=== PATIENT | female | born 1985 | race Caucasian/White ===

== ENCOUNTER → 2019-11-05 | Outpatient (POV) | payer BC ==
--- NOTE | 2019-11-07 10:34 | IRCOV ---
[facility] IR Consult Office Visit IR Consult Office Visit DATE: Nov 05, 2019 Patient agreed to telephone consult. Duration of call was 20 minutes. REASON FOR CONSULTATION/CHIEF COMPLAINT: Left leg swelling. HISTORY OF PRESENT ILLNESS: 34-year-old female gives decades long history of chronic left leg swelling which started in her teen years. She tried compression stockings and restricting diet and restricting salt intake with no relief. Over the past several months, she describes the left leg swells increasingly during the day, feels heavy and hurts. Swelling does go down overnight and is least in the morning and worsens during the day. This affects her daily activities. Her right leg swells a little but she states her symptoms are not anything like the left leg.. She denies pelvic bulk-like symptoms, extreme pain with menstruations and/or deep dyspareunia. She was seen by a vascular surgeon in [place] in May of this year and reports venous stenting was performed by vascular surgery, in [place]. She got symptom relief for 1 month post procedure, but now the symptoms are worse then before the procedure. She presents for a second opinion. No prior history of DVTs. No venous ulcers. No fevers or chills. She is on aspirin 325 mg. She took aspirin and Plavix for 3 months after the stenting. Nonsmoker. ALLERGIES: Please see below. HOME MEDICATIONS: Please see below. PAST MEDICAL HISTORY: Sarah's thyroiditis Proximal superventricular tachycardia PAST SURGICAL HISTORY: Bilateral groin access and reported left iliac vein stenting in June 2019 FAMILY HISTORY: No family history of varicose veins SOCIAL HISTORY: Nonsmoker. Denies alcohol or drugs. REVIEW OF SYSTEMS: Otherwise negative. PHYSICAL EXAMINATION: No video on patient's side LABORATORY DATA: None available Imaging: None available. ASSESSMENT/PLAN: 34-year-old female with decades long history of left lower extremity swelling and pain, reports recent iliac vein stenting at outside [facility]. Symptoms are now much worse post stenting and patient would like a second opinion. I feel this is best done with a venogram which will allow assessment for stent patency, look at stent placement/location, flow dynamics and allow for stent revision and/or extension if needed. We discussed the risks and benefits of the procedure and patient would like to proceed. We'll schedule the patient for this procedure. I spent 20 minutes in consultation with the patient. Thank you for this referral. Cc SAL Olivarez MD Nov 07, 2019 10:34
== END ==
LOC: M TMIRPOV 13:49
PROVIDERS: ATTEND Radiology Diagnostic Radiology
DX: M79.604 Pain in right leg (principal); M79.605 Pain in left leg; R60.0 Localized edema; E06.3 Autoimmune thyroiditis; I47.1 Supraventricular tachycardia; Z95.828 Presence of other vascular implants and grafts

== ENCOUNTER → 2019-11-22 | Outpatient (CLI) | payer BC ==
[~2019-11-22] MED LIST: ACETAMINOPHEN 325 MG TAB As Ordered ONE; ALPR0.25 PO; ASPI325T56 PO; ISOVUE-300 61% 50ML VIAL As Ordered ONE; LIDOCAINE 1% MDV 20ML VIAL As Ordered ONE; MIDAZOLAM INJ 2MG/2ML VIAL (J2250 PER 1MG) As Ordered ONE; NS 1,000 ML IV SCH; PROMETHAZINE INJ 25 MG/ML VIAL (J2550) As Ordered ONE; SYNT75TA PO; diphenhydrAMINE 50MG/ML VIAL (J1200) As Ordered ONE; fentaNYL 100 MCG/2 ML INJECTION (J3010) As Ordered ONE
[2019-11-22 09:09] LABS: HEMATOCRIT 43.6 % (36.0-47.0); HEMOGLOBIN 14.3 g/dl (12.0-15.5); MEAN CORPUSCULAR HEMOGLOBIN 30.1 pg (27.0-33.0); MEAN CORPUSCULAR HGB CONC 32.8 g/dl (32.0-36.5); MEAN CORPUSCULAR VOLUME 91.8 fl (80.0-96.0); PLATELET COUNT, AUTOMATED 336 10^3/uL (150-450); RED BLOOD COUNT 4.75 10^6/uL (4.00-5.40); WHITE BLOOD COUNT 9.9 10^3/uL (4.0-10.0)
[2019-11-22 09:52] LABS: BLOOD UREA NITROGEN 16 MG/DL (7-18); CALCIUM LEVEL 8.9 MG/DL (8.5-10.1); CARBON DIOXIDE LEVEL 26 MEQ/L (21-32); CHLORIDE LEVEL 106 MEQ/L (98-107); CREATININE FOR GFR 0.77 MG/DL (0.55-1.30); GLOMERULAR FILTRATION RATE > 60.0 (>60); GLUCOSE, FASTING 87 MG/DL (70-100); POTASSIUM SERUM 3.8 MEQ/L (3.5-5.1); SODIUM LEVEL 137 MEQ/L (136-145)
--- NOTE | 2019-11-22 13:24 | IRHP ---
[facility] IR Pre-Procedure H & P General Date of Service: Nov 22, 2019 Procedure: Same Day Surgery Interval History and Physical I have seen the patient and reviewed last H & P performed within 30 days. There is no significant interval change. History of Present Illness Chief Complaint The patient is a 34-year-old female admitted with a reason for visit of September. PRE-PROCEDURE DIAGNOSIS: september HEART: normal rate. LUNGS: normal breathing at rest. ASA Classification ASA Classification: I-Healthy Mallampati Score: II NPO: Yes Problems with prior sedation: No Obstructive Sleep Apnea: No Plan moderate sedation Home Medications Scheduled Aspirin (Aspirin), 1 TAB PO DAILY, (Reported) Levothyroxine Sodium (Synthroid), 1 TAB PO DAILY, (Reported) Scheduled PRN Alprazolam (Alprazolam), 0.25 MG PO BIDP PRN for anxiety, (Reported) VS, I&O, 24H, Fishbone Vital Signs/I&O Vital Signs Date Time Temp Pulse Resp B/P (MAP) Pulse Ox O2 Delivery O2 Flow Rate FiO2 11/22/19 12:20 66 16 99 Room Air 11/22/19 11:42 2 11/22/19 08:43 99.1 Laboratory Data 24H LABS Laboratory Tests 2 11/22/19 08:43: Nucleated Red Blood Cells % (auto) 0.0, Anion Gap 5L, Glomerular Filtration Rate > 60.0, Calcium Level 8.9 CBC/BMP Laboratory Tests 11/22/19 08:43 SAL AREVALO MD Nov 22, 2019 13:24
--- NOTE | 2019-11-22 13:28 | POST-OPPD ---
Postoperative Procedure Note Date Of Procedure: Nov 22, 2019 Time Of Procedure: 12:24 PREOPERATIVE DIAGNOSIS: geoff natanael POSTOPERATIVE DIAGNOSIS: same FINDINGS: left common iliac vein stent is patent but encroaching on right iliac vein drainage with filling of cross pelvic collaterals. 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 This is not a good place to stent across joint line in young and fit patient. There is the risk of stent fracture and occlusion. Often patients feel the stent in this location as a discomfort. PROCEDURE: venogram. pressure measurements SURGEON: Zeyad ANESTHESIA: mod sed ESTIMATED BLOOD LOSS: < 5 ml COMPLICATIONS: none POSTOPERATIVE CONDITION: stable SAL AREVALO MD Nov 22, 2019 13:28
[2019-11-22 16:14] VITALS: BP 105/74
[2019-11-22] MEDS: ACETAMINOPHEN 325 MG TAB PO PRN (16:14)
--- NOTE | 2019-11-27 13:13 | REP ---
IR Central venography. IR Left and right iliac venography. IR Intravenous pressure measurements. IR Moderate sedation. IR Ultrasound guided right internal jugular vein access. Clinical information: Decades long history of left lower extremity swelling and pain. Recent left iliac stenting at outside facility with worsening of symptoms. Physician: Dr. Jeffers. Procedure: The patient was advised of the benefits, risks and alternatives of the procedure and informed consent was obtained. The time-out was performed with verification of the patient's name, MRN, site of procedure and type of procedure to be performed. The patient was positioned in the supine position on the angiographic table. The site was prepped and draped in the usual sterile fashion. Moderate sedation was performed by the physician including the presence of an independent trained observer who assisted in monitoring the patient's level of consciousness and physiologic status. Following the administration of fentanyl and Versed, the physician spent 60 minutes of continuous face to face time with the patient. A certifier radiograph reveals a large diameter but short length stent in the vicinity of the inferior vena cava/ left iliac vein. Ultrasound of the right neck demonstrates patent and compressible right internal jugular vein. A micropuncture needle was used under ultrasound guidance to access the right internal jugular vein. An 018 wire was advanced into the inferior vena cava and the micropuncture needle was exchanged for a micro sheath. An 035 wire was advanced under fluoroscopy guidance into the inferior vena cava and the micro sheath was removed over the wire. A 6-[place]er vascular sheath was advanced over the wire. A 5-[place]er pigtail catheter was advanced over the wire under fluoroscopy guidance and used to catheterize the right common iliac vein. A right iliac venogram was performed and this demonstrates patent right iliac vein and inferior vena cava. However, there is filling of cross pelvic collaterals and the contralateral left iliac vein as the stent appears to partially [facility] the right common iliac vein drainage. There is still drainage past the stent into the inferior vena cava but filling of cross pelvic collaterals and additional drainage via the left iliac vein. The catheter in conjunction with the wire were used under fluoroscopy guidance to catheterize the left common iliac vein. A venogram was performed and this demonstrates patent left common iliac vein. There is flow through the stent and into the inferior vena cava. The stent appears oversized in relation to the left common iliac vein diameter. But there is flow in the system. No collaterals filling from the left common iliac vein. The catheter in conjunction with a wire was then used to catheterize the left femoral vein. A venogram was then performed and this demonstrates stenosis in the left common femoral vein. No filling of collaterals in this region. Pressure measurements were then made in the left femoral vein beyond the area stenosis and in the left iliac vein proximal to the area of stenosis. Peripheral to the stenosis in the left leg pressure measures 12 mmHg. Central to the stenosis in the left iliac vein, pressure measures 8 mmHg. There is a 4 mmHg gradient across the stenosis. This is not a good area to stent in young active individuals as it is across the joint line and there is high probability of stent fractures/thrombosis. In addition, the pressure gradient and lack of collateral filling, suggests insignificant delay in flow. Catheter, wire and sheath were removed, pressure held hemostasis achieved. A sterile dressing was applied to the site. The patient tolerated the procedure well and was returned to PRU in stable condition. EBL: Less than 5 ml. Complications: None. Impression: 1. Venogram demonstrates a large diameter, short length stent within the left common iliac vein and IVC. 2. The left iliac stent does protrude into the inferior vena cava and somewhat jails the right common iliac vein drainage causing filling of cross pelvic collaterals from the right common iliac vein and therefor drainage via the left iliac vein. The left iliac vein drainage however is patent, flow through the stent is patent. But there is now additional traffic through the left iliac system. 3. Focal area of stenosis seen in the left common femoral vein with a pressure gradient of 4 mmHg and no significant collaterals. This may or may not be contributing to her chronic symptoms. This is located across the joint line and therefore not a good place to stent in a young, active and fit individual, due to risk of stent fracture and thrombosis. Thank you this referral. Cc Dr. Ron Electronically Signed by Lupe Jeffers MD 11/27/2019 01:12 P
== END ==
LOC: M IRPRO 08:31
PROVIDERS: ATTEND Radiology Diagnostic Radiology
DX: Q96.8 Other variants of Turner's syndrome (principal); E05.00 Thyrotoxicosis with diffuse goiter without thyrotoxic crisis or storm; I47.2 Ventricular tachycardia; Z79.82 Long term (current) use of aspirin; Z79.899 Other long term (current) drug therapy
CPT/HCPCS: 36011; 36012; 75822; 75825; 80048; 85027; 99152; 99153; C1769; C1887; C1894; J1200; J1644; J2250; J3010; Q9967

== ENCOUNTER → 2020-01-14 | Outpatient (POV) | payer BC ==
[~2020-01-14] MED LIST changes: -ACETAMINOPHEN 325 MG TAB As Ordered ONE; -ISOVUE-300 61% 50ML VIAL As Ordered ONE; -LIDOCAINE 1% MDV 20ML VIAL As Ordered ONE; -MIDAZOLAM INJ 2MG/2ML VIAL (J2250 PER 1MG) As Ordered ONE; -NS 1,000 ML IV SCH; -PROMETHAZINE INJ 25 MG/ML VIAL (J2550) As Ordered ONE; -diphenhydrAMINE 50MG/ML VIAL (J1200) As Ordered ONE; -fentaNYL 100 MCG/2 ML INJECTION (J3010) As Ordered ONE
--- NOTE | 2020-01-15 15:32 | IRPN ---
[facility] IR Progress Note IR Progress Note DATE: Jan 14, 2020 Patient agreed to this telephone follow-up. Duration of call 15 minutes. FOLLOW-UP: Status post venogram, venogram access site healed without bruising, swelling or pain. Venogram showed patent left iliac stent. Somewhat jailed flow from the right iliac vein, due to the stent with filling of cross pelvic collaterals and drainage via the left iliac vein. Area of stenosis in the left common femoral vein without significant collateral flow. I discussed the findings of the venogram with the patient. Patient has noticed there is increasing right lower extremity swelling which is explained by the above findings. I would recommend bilateral pantyhose compression stockings to 35 mmHg to improve blood return and venous drainage from the legs. This will keep the stent patent and improve flow through the compromised right iliac vein. Patient also describes some pain in the left hip region when she is biking and wondered it it is the stent she is feeling. The stent is not in the left hip region but in the proximal left common iliac vein. She may be getting referred pain as stenting in this area can sometimes irritate the iliopsoas. However, the area of focal stenosis of the common femoral vein may be giving her pain or swelling especially when she does continuous hip flexion exercises like biking. As we discussed, this is not an appropriate space to stent. Patient had multiple questions about and/or IVF therapy and increased risk of DVT. Whether or not to go on anticoagulation now that she has a stent. I advised the patient to discuss this with the vascular surgeon who placed the stent and with her maternal specialists. Patient asked for me to provide her with a CD of the images of the venogram and I'm happy to do this and this will be provided to the patient. I recommend bilateral pantyhose compression stockings to 35 mmHg and placed a prescription for this. This will improve lower extremity swelling, keep the stents patent as well as improve flow through the compromised right iliac vein. No further follow-up scheduled from my side unless initiated by patient and/or referring provider. Thank you for this referral Cc Dr. Álvarez Allergies Coded Allergies: Cephalosporins (Verified Allergy, Unknown, 11/22/19) Penicillins (Verified Allergy, Unknown, 11/22/19) Sulfa (Sulfonamide Antibiotics) (Verified Allergy, Unknown, 11/22/19) SAL AREVALO MD Jan 15, 2020 15:32
== END ==
LOC: M TMIRPOV 13:36
PROVIDERS: ATTEND Radiology Diagnostic Radiology
DX: Z48.812 Encounter for surgical aftercare following surgery on the circulatory system (principal); Z95.828 Presence of other vascular implants and grafts; M25.551 Pain in right hip